=== PATIENT | male | born 1935 | race Caucasian/White ===

== ENCOUNTER 2018-01-19 12:13 | Emergency (ER) | payer MEDICARE, OTHER ==
[~2018-01-19] VITALS: Ht 167.6 cm; Wt 84.4 kg
[~2018-01-19 12:13] MED LIST: ASPIR 8181 MG PO; CLINDAMYCIN HC150 MG PO; LUPRON DEPOT45 MG; MICARDIS40 MG PO; SIMVASTATIN20 MG PO; TYLENOL WITH C1 EAC1 PO; VALIUM5 MG PO
[2018-01-19] MEDS ORDERED: GENTAMICIN SULFATE 0.3% OP 5 ML BTL OP ONE (12:45)
== END 2018-01-19 14:14 | disposition home or self-care (01) ==
LOC: ER 12:13
DX: H10.021 Other mucopurulent conjunctivitis, right eye (principal)
CPT/HCPCS: 99283

== ENCOUNTER → 2020-03-25 | Outpatient (CLI) | payer MEDICARE, OTHER ==
--- NOTE | 2020-03-25 12:57 | Diagnostic Imaging Report ---
Examination: CT LUMBAR SPINE WO CONTRAST History: Severe low back pain with radiation down the bilateral buttocks. Bilateral lumbar radiculopathy. Comparison studies: None Technique: Axial images were obtained through the lumbar spine from L1. Coronal and sagittal reconstructions obtained from the axial data. Dose modulation, iterative reconstruction, and/or weight based adjustment of the mA/kV was utilized to reduce the radiation dose to as low as reasonably achievable. Intravenous contrast: None Findings: The usual 5 non-rib bearing lumbar vertebral bodies are present. Alignment: Normal lordosis. Leftward curvature centered at L4-L5. Soft tissues: No abnormalities. Paraspinal muscles: Atherosclerotic calcification of the abdominal aorta. Sacroiliac joints: Vacuum phenomenon bilaterally due to degenerative change. Vertebrae: No fractures, infection or neoplasm. Degenerative changes: Multilevel vacuum phenomenon and anterior osteophytosis. L1-L2: Asymmetric to the left disc bulge results in mild left neural foraminal narrowing. No right foraminal or canal stenosis. L2-L3: Diffuse disc bulge, ligamentum flavum thickening and bilateral facet arthropathy result in moderate bilateral neural foraminal narrowing and moderate canal stenosis. L3-L4: Diffuse disc osteophyte complex, ligamentum flavum thickening and bilateral facet arthropathy result in moderate right and severe left neural foraminal narrowing and severe canal stenosis. L4-L5: Asymmetric to the right disc osteophyte complex, ligamentum flavum thickening and bilateral facet arthropathy results in severe right and mild left neural foraminal narrowing and severe canal stenosis. L5-S1: Diffuse disc osteophyte complex and bilateral facet arthropathy result in mild right and severe left neural foraminal narrowing. No canal stenosis. IMPRESSION: 1. Degenerative changes from L1-L2 through L5-S1 with severe canal stenosis at L3-L4 and L4-L5 and moderate canal stenosis at L2-L3. 2. Severe left foraminal narrowing at L3-L4 and L5-S1 and severe right foraminal narrowing at L4-L5. Signed by: Dr. Brianna Lerner M.D. on 03/25/2020 12:53 PM
== END ==
LOC: CT 11:29
PROVIDERS: ATTEND Physical Medicine & Rehabilitation Pain Medicine
DX: M54.5 Low back pain (principal); M47.896 Other spondylosis, lumbar region; M46.1 Sacroiliitis, not elsewhere classified
CPT/HCPCS: 72131

== ENCOUNTER → 2020-04-03 | Day surgery (SDC) | payer MEDICARE, OTHER ==
[2020-03-31 10:55] LABS: BASOPHILS # (AUTO) 0.1 (0.0-0.1); EOSINOPHILS # (AUTO) 0.2 (0.0-0.4); EOSINOPHILS % 2.4 % (0.0-6.0); HEMATOCRIT 44.5 % (38.2-49.6); HEMOGLOBIN 14.2 g/dL (14.0-18.0); LYMPHOCYTES % 29.7 % (18.0-39.1); MEAN CORPUSCULAR HEMOGLOBIN 29.5 pg (28-32); MEAN CORPUSCULAR HGB CONC 31.9 g/dL (31-35); MEAN CORPUSCULAR VOLUME 92.3 fL (81-99); MONOCYTES # (AUTO) 0.8 (0.2-0.8); MONOCYTES % 11.9 % (4.4-11.3); NEUTROPHILS # (AUTO) 3.7 (2.1-6.9); NEUTROPHILS % 54.4 % (38.7-80.0); PLATELET COUNT 181 x10e3/uL (140-360); RED BLOOD COUNT 4.82 x10e6/uL (4.3-5.7); RED CELL DISTRIBUTION WIDTH 13.9 % (11.7-14.4)
[~2020-04-03] MED LIST changes: +BUPIVACAINE 0.25% 30ML SDV INJ ONE; +FENTANYL CITRATE/PF 100MCG/2 ML INJ ONE; +IOPAMIDOL 200 MG/ML 20 ML VIAL IT ONE; +LIDOCAINE HCL 1% 30ML-PF VIAL ONE; +LIDOCAINE HCL 2% LOCAL INJ 5 ML SDV VIAL INJ ONE; +MIDAZOLAM HCL 2 MG/2 ML VIAL ONE; +MULTIVITAMINS1 EAC7 PO; +PROPOFOL IV EMULSION 10 MG/ML 20 ML VIAL ONE; +TRIAMCINOLONE ACET 40 MG/ML VIAL ONE
[2020-04-03 07:15] VITALS: BP 117/77
== END | disposition home or self-care (01) ==
LOC: OR 05:24
PROVIDERS: ATTEND Physical Medicine & Rehabilitation Pain Medicine
DX: M46.1 Sacroiliitis, not elsewhere classified (principal); G57.00 Lesion of sciatic nerve, unspecified lower limb; M79.10 Myalgia, unspecified site; M62.838 Other muscle spasm; M48.061 Spinal stenosis, lumbar region without neurogenic claudication; M47.896 Other spondylosis, lumbar region; I44.0 Atrioventricular block, first degree; I10 Essential (primary) hypertension; Z88.0 Allergy status to penicillin; Z01.810 Encounter for preprocedural cardiovascular examination; Z01.812 Encounter for preprocedural laboratory examination; Z11.59 Encounter for screening for other viral diseases; Z79.82 Long term (current) use of aspirin; Z68.35 Body mass index [BMI] 35.0-35.9, adult; Z87.442 Personal history of urinary calculi; Z85.46 Personal history of malignant neoplasm of prostate; Z95.0 Presence of cardiac pacemaker
CPT/HCPCS: 20552; G0260; 36415; 76000; 85025; 93005; J2001; J2250; J3010; J3301; Q9967; U0002